=== PATIENT | female | born 1995 | race Two or more races ===

== ENCOUNTER 2024-11-15 19:33 | Emergency (ER) | payer BC ==
[~2024-11-15] VITALS: Ht 167.6 cm; Wt 49.9 kg
[2024-11-15] MEDS ORDERED: ADDERALL 15 MG15 MG (19:47)
[2024-11-15] MEDS ORDERED: CLINDAMYCIN PHOSPHATE 150 MG/ML (600mg) IM STA (20:32)
[2024-11-15] MEDS ORDERED: CLINDAMYCIN PHOSPHATE 150 MG/ML (300mg) ONE (20:54)
== END 2024-11-15 21:09 | disposition home or self-care (01) ==
LOC: ER 20:22
DX: L03.90 Cellulitis, unspecified (principal); Z88.0 Allergy status to penicillin; Z91.012 Allergy to eggs; Z91.018 Allergy to other foods